=== PATIENT | male | born 1980 | race Caucasian/White ===

== ENCOUNTER 2020-04-29 14:33 | Outpatient (CLI) | payer BC, SELFPAY ==
[2020-04-30 13:33] LABS: SARS-CoV-2 RNA PCR Negative
== END 2020-04-29 14:34 | disposition home or self-care (01) ==
LOC: CHSLAB 14:40
PROVIDERS: PCP Internal Medicine; Visit Provider Internal Medicine
DX: Z20.828 Contact with and (suspected) exposure to other viral communicable diseases (principal)
CPT/HCPCS: 87635; C9803; U0003

== ENCOUNTER 2020-07-07 12:56 | Outpatient (CLI) | payer BC, SELFPAY ==
[2020-07-08 18:38] LABS: SARS-CoV-2 RNA PCR Positive
== END 2020-07-07 12:57 | disposition home or self-care (01) ==
LOC: CHSLAB 12:57
PROVIDERS: PCP Internal Medicine; Visit Provider Internal Medicine
DX: U07.1 COVID-19 (principal)
CPT/HCPCS: 87635; C9803; U0003

== ENCOUNTER 2020-07-18 14:17 | Outpatient (CLI) | payer BC, SELFPAY ==
[2020-07-18 14:50] LABS: SARS-CoV-2 Ag Negative (Negative)
== END 2020-07-18 14:18 | disposition home or self-care (01) ==
LOC: CHSLAB 14:19
PROVIDERS: PCP Internal Medicine; Visit Provider Internal Medicine
DX: U07.1 COVID-19 (principal)
CPT/HCPCS: 87426; C9803

== ENCOUNTER 2020-12-08 15:54 | Outpatient (CLI) | payer BC, SELFPAY ==
--- NOTE | ~2020-12-08 | XR_ITS ---
XR foot LT min 3V DATE: 12/08/2020 16:18 INDICATION: Dorsal left foot pain, extending medially TECHNIQUE: 4 views COMPARISON: 01/24/2019 left foot FINDINGS: Osteoarthritis at the tibiotalar joint. Again noted is posterior calcaneal and slight plantar calcaneal enthesopathy and enthesopathy of the base of the fifth metatarsal bone. Old healed fracture of the fifth metatarsal bone is suggested. No fracture or dislocation, periosteal reaction or bone destruction is detected. IMPRESSION: Calcaneal and fifth metatarsal enthesopathy Tibiotalar osteoarthritis Reviewed, dictated and finalized at location A.
== END 2020-12-08 15:55 | disposition home or self-care (01) ==
LOC: CHSIMG 15:57
PROVIDERS: PCP Internal Medicine; Visit Provider Nurse Practitioner Family
DX: M79.672 Pain in left foot (principal); M77.52 Other enthesopathy of left foot and ankle
CPT/HCPCS: 73630

== ENCOUNTER 2024-11-17 09:04 | Outpatient (CLI) | payer BC, SELFPAY ==
--- NOTE | ~2024-11-17 | XR_ITS ---
Right foot Technique: AP, oblique, and lateral views were obtained. Clinical History: Injury Comparison 24/11/2009 Findings: No acute fracture or dislocation is seen. 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 Osseous alignment is vasu tomic. Joint spaces are preserved without erosive or degenerative change. Soft tissues are unremarkab le. Impression: No acute abnormality. Reviewed, dictated and finalized at location M. Impression: No acute abnormality.
--- OUTSIDE RECORDS SUMMARY | 2024-11-17 09:13 | XMS_ITS | Clinical Summary ---
Author Organization [facility] Address [address] [place] [id number] Care Team Providers Care Community Relations Director Name Role Phone Unavailable Primary Care Provider Unavailabl e Social History Tobacco Use Types Packs/Day Years Used Date Smoking Tobacco: Never Assessed Sex and Gender Information Value Date Recorded Sex Assigned at Not on file Legal Sex Male 8:11 PM CDT Gender Identity Not on file Sexual Orientation Not on file Plan of Treatment Health Maintenance Due Date Last Done Comments Annual Physical 01/24/1983 Hepatitis C 01/24/1998 DTaP, Tdap and Td Vaccines ( 1 - Tdap) 01/24/1999 Hepatitis B Vaccines (1 of 3 - 19+ 3-dose series) 01/24/1999 COVID-19 Vaccine (2023-2 5 season) 2024 HPV Vaccines Aged Out No longer eligi ble based on patient's age to complete this topic Meningococcal B Vaccine Aged Out No l onger eligible based on patient's age to complete this topic Meningococcal Vaccine Aged Out No jhon breanna eligible based on patient's age to complete this topic Pneumococcal Vaccine: Pediat rics (0 to 5 Years) and At-Risk Patients (6 to 49 Years) Aged Out No longer eligible b ased on patient's age to complete this topic RSV Immunizations Under 20 Months Aged Out No longer eligible based on patient's age to complete this topic
== END 2024-11-17 09:05 | disposition home or self-care (01) ==
LOC: CHSIMG 09:07
PROVIDERS: PCP Internal Medicine; Visit Provider Nurse Practitioner Family
DX: S99.921A Unspecified injury of right foot, initial encounter (principal)
CPT/HCPCS: 73630